=== PATIENT | male | born 1980 | race Caucasian/White ===

== ENCOUNTER 2021-04-30 07:09 | Emergency (ER) | payer SELFPAY ==
[~2021-04-30] VITALS: Ht 157.5 cm; Wt 70.0 kg
[2021-04-30] MEDS ORDERED: HYDR26CR2 TP (07:47)
[2021-04-30 08:01] VITALS: BP 138/65
== END 2021-04-30 08:00 | disposition home or self-care (01) ==
LOC: ER 07:09
DX: K64.4 Residual hemorrhoidal skin tags (principal); G89.29 Other chronic pain; F17.210 Nicotine dependence, cigarettes, uncomplicated
CPT/HCPCS: 99281

== ENCOUNTER 2022-05-07 07:32 | Emergency (ER) | payer MEDICAID ==
[~2022-05-07] VITALS: Ht 167.6 cm; Wt 69.0 kg
[~2022-05-07 07:32] MED LIST: HYDR26CR2 TP
[2022-05-07 07:44] VITALS: BP 147/92
[2022-05-07 16:46] LABS: BASOPHILS % 0.7 % (0.0-2.0); EOSINOPHILS % 1.5 % (0.0-5.0); HEMATOCRIT. 46.2 % (42.0-52.0); HEMOGLOBIN. 15.5 g/dL (14.0-18.0); LYMPHOCYTES % 31.5 % (20.0-50.0); MEAN CORPUSCULAR HEMOGLOBIN 28.3 pg (28.0-32.0); MEAN CORPUSCULAR VOLUME 84.4 fL (80.0-94.0); MONOCYTES % 9.4 % (2.0-8.0); NEUTROPHILS % 56.9 % (40.0-76.0); PLATELET 302 x1000/uL (130-400); RED BLOOD CELL COUNT 5.47 mill/uL (4.7-6.1)
[2022-05-07 16:53] LABS: CHLORIDE 105 mEq/L (98-107)
== END 2022-05-07 18:13 | disposition home or self-care (01) ==
LOC: ER 07:32
DX: K21.9 Gastro-esophageal reflux disease without esophagitis (principal); E78.00 Pure hypercholesterolemia, unspecified; Z98.890 Other specified postprocedural states
CPT/HCPCS: 36415; 80053; 84484; 85025; 93005; 99284

== ENCOUNTER 2022-06-28 01:14 | Emergency (ER) | payer MEDICAID ==
[~2022-06-28] VITALS: Ht 165.1 cm; Wt 73.0 kg
[2022-06-28 01:30] VITALS: BP 144/97
[2022-06-28] MEDS ORDERED: IBUP-2028 MT (02:53)
[2022-06-28] MEDS ORDERED: BENZ100C86 MT (02:53)
== END 2022-06-28 05:21 | disposition home or self-care (01) ==
LOC: ER 01:22
DX: J06.9 Acute upper respiratory infection, unspecified (principal); Z98.890 Other specified postprocedural states; Z20.822 Contact with and (suspected) exposure to COVID-19
CPT/HCPCS: 71045; 87426; 99284; C9803

== ENCOUNTER 2022-11-14 19:48 | Emergency (ER) | payer MEDICAID ==
[~2022-11-14] VITALS: Ht 165.1 cm; Wt 70.0 kg
[~2022-11-14 19:48] MED LIST changes: +BENZ100C86 MT; +IBUP-2028 MT
[2022-11-14 20:07] VITALS: O2SAT 98
[2022-11-14] MEDS ORDERED: FLUORESCEIN SODIUM 1MG/STRIP RIGHTEYE ONE (21:45)
[2022-11-14] MEDS ORDERED: IBUP-2029 MT (22:18)
[2022-11-14] MEDS ORDERED: ERYT1OIN6 RIGHTEYE (22:18)
[2022-11-14 22:33] VITALS: BP 131/89; PULSE 62; RESP 14; TEMP 98
== END 2022-11-14 23:03 | disposition home or self-care (01) ==
LOC: ER 19:48
DX: S00.11XA Contusion of right eyelid and periocular area, initial encounter (principal); X58.XXXA Exposure to other specified factors, initial encounter; Y93.89 Activity, other specified; Y92.89 Other specified places as the place of occurrence of the external cause; Y99.8 Other external cause status
CPT/HCPCS: 99283

== ENCOUNTER 2023-03-11 19:30 | Emergency (ER) | payer MEDICAID ==
[~2023-03-11] VITALS: Ht 175.3 cm; Wt 85.0 kg
[~2023-03-11 19:30] MED LIST changes: +ERYT1OIN6 RIGHTEYE; +IBUP-2029 MT
[2023-03-11 20:15] VITALS: BP 139/97; PULSE 75; RESP 16; TEMP 98.2; O2SAT 99
[2023-03-11] MEDS ORDERED: CARB-274 EACH EAR (20:41)
== END 2023-03-11 21:10 | disposition home or self-care (01) ==
LOC: ER 19:30
DX: K56.41 Fecal impaction (principal)
CPT/HCPCS: 99283

== ENCOUNTER 2023-07-19 12:48 | Emergency (ER) | payer MEDICAID ==
[~2023-07-19] VITALS: Ht 172.7 cm; Wt 90.0 kg
[~2023-07-19 12:48] MED LIST changes: +CARB-274 EACH EAR
[2023-07-19 13:01] VITALS: BP 114/70; PULSE 90; RESP 16; TEMP 98.4; O2SAT 100
[2023-07-19] MEDS: MAGNESIUM/ALUMINUM HYDROXIDE/SIMETHICONE 30ML UDC PO STA (13:25)
[2023-07-19] MEDS: FAMOTIDINE 20MG TABLET PO SCH (13:25)
[2023-07-19 13:58] LABS: BASOPHILS % 0.9 % (0.0-2.0); EOSINOPHILS % 3.7 % (0.0-5.0); HEMATOCRIT. 41.6 % (42.0-52.0); HEMOGLOBIN. 14.3 g/dL (14.0-18.0); LYMPHOCYTES % 27.8 % (20.0-50.0); MEAN CORPUSCULAR HGB CONC 34.4 g/dL (31.0-37.0); MEAN CORPUSCULAR VOLUME 84.4 fL (80.0-94.0); MEAN PLATELET VOLUME 8.2 fl (7.4-10.4); MONOCYTES % 11.7 % (2.0-8.0); NEUTROPHILS % 55.9 % (40.0-76.0); PLATELET 236 x1000/uL (130-400); RED BLOOD CELL COUNT 4.93 mill/uL (4.7-6.1); RED CELL DISTRIBUTION WIDTH 13.9 % (11.6-14.6); WHITE BLOOD COUNT 6.8 x1000/uL (4.5-11.0)
[2023-07-19 14:07] LABS: INR 0.9; PROTHROMBIN TIME 10.5 sec (9.6-11.0)
[2023-07-19 14:14] LABS: ALANINE AMINOTRANSFERASE 33 IU/L (10-49); ALBUMIN 4.6 g/dL (3.2-4.8); ASPARTATE AMINOTRANSFERASE 29 IU/L (<34); BILIRUBIN TOTAL 0.5 mg/dL (0.1-1.0); CALCIUM 8.9 mg/dL (8.7-10.4); CARBON DIOXIDE 26 mEq/L (21-32); CHLORIDE 107 mEq/L (98-107); CREATININE 0.9 mg/dL (0.6-1.3); GLUCOSE 115 mg/dL (70-105); POTASSIUM 4.1 mEq/L (3.5-5.1); PROTEIN TOTAL 7.1 g/dL (6.0-8.3); SODIUM 138 mEq/L (136-145); UREA NITROGEN BLOOD 11 mg/dL (9-23)
[2023-07-19 14:42] LABS: TROPONIN I HIGH SENSITIVITY < 4 ng/L (3.0-53)
[2023-07-19 16:51] LABS: TROPONIN I HIGH SENSITIVITY 4 ng/L (3.0-53)
[2023-07-19 18:44] LABS: TROPONIN I HIGH SENSITIVITY 4 ng/L (3.0-53)
== END 2023-07-19 23:03 | disposition home or self-care (01) ==
LOC: ER 12:48
DX: R07.89 Other chest pain (principal); F41.9 Anxiety disorder, unspecified; Z90.49 Acquired absence of other specified parts of digestive tract; Z79.899 Other long term (current) drug therapy
CPT/HCPCS: 36415; 71045; 80053; 84484; 85025; 93005; 99285

== ENCOUNTER 2023-10-13 09:46 | Emergency (ER) | payer MEDICAID, OTHER ==
[~2023-10-13] VITALS: Ht 167.6 cm; Wt 73.0 kg
[2023-10-13 09:49] VITALS: O2SAT 100
[2023-10-13 10:17] LABS: CHLORIDE 104 mEq/L (98-107); POTASSIUM 4.1 mEq/L (3.5-5.1); SODIUM 139 mEq/L (136-145)
[2023-10-13 10:18] LABS: CALCIUM 9.8 mg/dL (8.7-10.4); CARBON DIOXIDE 27 mEq/L (21-32)
[2023-10-13 10:23] LABS: GLUCOSE 97 mg/dL (70-105); UREA NITROGEN BLOOD 7 mg/dL (9-23)
[2023-10-13 10:25] LABS: ALANINE AMINOTRANSFERASE 37 IU/L (10-49); ALBUMIN 4.6 g/dL (3.2-4.8); ASPARTATE AMINOTRANSFERASE 25 IU/L (<34); BILIRUBIN DIRECT 0.2 mg/dL (<=3.0); BILIRUBIN TOTAL 0.7 mg/dL (0.1-1.0); PROTEIN TOTAL 7.6 g/dL (6.0-8.3)
[2023-10-13 10:28] LABS: BASOPHILS % 0.9 % (0.0-2.0); EOSINOPHILS % 1.4 % (0.0-5.0); HEMATOCRIT. 43.7 % (42.0-52.0); HEMOGLOBIN. 14.7 g/dL (14.0-18.0); LYMPHOCYTES % 28.4 % (20.0-50.0); MEAN CORPUSCULAR HEMOGLOBIN 28.8 pg (28.0-32.0); MEAN CORPUSCULAR HGB CONC 33.6 g/dL (31.0-37.0); MEAN CORPUSCULAR VOLUME 85.7 fL (80.0-94.0); MEAN PLATELET VOLUME 8.1 fl (7.4-10.4); MONOCYTES % 6.3 % (2.0-8.0); PLATELET 284 x1000/uL (130-400); RED CELL DISTRIBUTION WIDTH 13.7 % (11.6-14.6); WHITE BLOOD COUNT 6.1 x1000/uL (4.5-11.0)
[2023-10-13] MEDS ORDERED: MAGNESIUM/ALUMINUM HYDROXIDE/SIMETHICONE 30ML UDC PO STA (12:23)
[2023-10-13] MEDS ORDERED: FAMOTIDINE 20MG TABLET PO ONE (12:30)
[2023-10-13 14:27] VITALS: BP 118/80; PULSE 61; RESP 16; TEMP 98
[2023-10-13] MEDS ORDERED: MAG-55 MT (14:27)
[2023-10-13] MEDS ORDERED: OMEP20CA14 MT (14:27)
[2023-10-13] MEDS: VISCOUS LIDOCAINE 2% 15 ML UDC PO NR (14:30)
[2023-10-13] MEDS: MAGNESIUM/ALUMINUM HYDROXIDE/SIMETHICONE 30ML UDC PO NR (14:31)
[2023-10-13] MEDS: FAMOTIDINE 20MG TABLET PO NR (14:31)
[2023-10-13 14:42] LABS: CLARITY URINE CLEAR (CLEAR); COLOR URINE YELLOW (YELLOW); GLUCOSE URINE NEGATIVE (NEGATIVE); KETONES URINE NEGATIVE (NEGATIVE); LEUKOCYTE ESTERASE URINE NEGATIVE (NEGATIVE); NITRITE URINE NEGATIVE (NEGATIVE); OCCULT BLOOD URINE NEGATIVE (NEGATIVE); PROTEIN URINE NEGATIVE (NEGATIVE); SPECIFIC GRAVITY URINE 1.016 (1.005-1.030); UROBILINOGEN URINE 0.2 E.U./dL (0.2-1.0)
== END 2023-10-13 14:51 | disposition home or self-care (01) ==
LOC: ER 09:46
DX: K21.9 Gastro-esophageal reflux disease without esophagitis (principal); F41.9 Anxiety disorder, unspecified; Z79.899 Other long term (current) drug therapy
CPT/HCPCS: 80076; 80048; 81003; 85025; 36415; 93005; 99284; Z7610

== ENCOUNTER 2024-02-16 10:30 | Emergency (ER) | payer MEDICAID, OTHER ==
[~2024-02-16] VITALS: Ht 170.2 cm; Wt 66.0 kg
[~2024-02-16 10:30] MED LIST changes: +MAG-55 MT; +OMEP20CA14 MT
[2024-02-16 10:37] VITALS: O2SAT 99
[2024-02-16 10:55] VITALS: BP 112/80; PULSE 72; RESP 18; TEMP 98.1; O2SAT 98
[2024-02-16 11:42] LABS: CHLORIDE 104 mEq/L (98-107); SODIUM 139 mEq/L (136-145)
[2024-02-16 11:43] LABS: CALCIUM 10.1 mg/dL (8.7-10.4); CARBON DIOXIDE 27 mEq/L (21-32)
[2024-02-16 11:48] LABS: GLUCOSE 93 mg/dL (70-105); UREA NITROGEN BLOOD 8 mg/dL (9-23)
[2024-02-16 11:50] LABS: TROPONIN I HIGH SENSITIVITY < 4 ng/L (3.0-53)
[2024-02-16 11:51] LABS: BASOPHILS % 0.8 % (0.0-2.0); EOSINOPHILS % 3.2 % (0.0-5.0); HEMATOCRIT. 44.2 % (42.0-52.0); HEMOGLOBIN. 15.1 g/dL (14.0-18.0); MEAN CORPUSCULAR HEMOGLOBIN 29.2 pg (28.0-32.0); MEAN CORPUSCULAR HGB CONC 34.3 g/dL (31.0-37.0); MEAN CORPUSCULAR VOLUME 85.2 fL (80.0-94.0); MEAN PLATELET VOLUME 8.2 fl (7.4-10.4); PLATELET 269 x1000/uL (130-400); RED BLOOD CELL COUNT 5.18 mill/uL (4.7-6.1); RED CELL DISTRIBUTION WIDTH 13.9 % (11.6-14.6); WHITE BLOOD COUNT 6.3 x1000/uL (4.5-11.0)
[2024-02-16 12:09] LABS: CLARITY URINE CLEAR (CLEAR); COLOR URINE YELLOW (YELLOW); GLUCOSE URINE NEGATIVE (NEGATIVE); KETONES URINE NEGATIVE (NEGATIVE); LEUKOCYTE ESTERASE URINE NEGATIVE (NEGATIVE); NITRITE URINE NEGATIVE (NEGATIVE); OCCULT BLOOD URINE NEGATIVE (NEGATIVE); PH URINE 6.5 (4.5-8.0); PROTEIN URINE NEGATIVE (NEGATIVE); UROBILINOGEN URINE 0.2 E.U./dL (0.2-1.0)
[2024-02-16] MEDS ORDERED: MECL-217 MT (12:34)
== END 2024-02-16 13:18 | disposition home or self-care (01) ==
LOC: ER 10:30
DX: R42 Dizziness and giddiness (principal); F41.9 Anxiety disorder, unspecified; Z98.890 Other specified postprocedural states
CPT/HCPCS: 36415; 80048; 81003; 84484; 85025; 93005; 99284

== ENCOUNTER 2024-04-08 06:54 | Emergency (ER) | payer MEDICAID, OTHER ==
[~2024-04-08] VITALS: Ht 170.2 cm; Wt 69.5 kg
[~2024-04-08 06:54] MED LIST changes: +MECL-217 MT
[2024-04-08 07:01] VITALS: BP 110/77; TEMP 98.4; O2SAT 99
[2024-04-08 07:05] VITALS: PULSE 80; RESP 16; O2SAT 100
[2024-04-08] MEDS ORDERED: CYCL10TA21 MT (07:52)
[2024-04-08] MEDS ORDERED: CELE100C MT (07:52)
== END 2024-04-08 08:27 | disposition home or self-care (01) ==
LOC: ER 06:54
DX: S16.1XXA Strain of muscle, fascia and tendon at neck level, initial encounter (principal); S29.012A Strain of muscle and tendon of back wall of thorax, initial encounter; F41.9 Anxiety disorder, unspecified; Z79.899 Other long term (current) drug therapy; W18.30XA Fall on same level, unspecified, initial encounter; Y93.89 Activity, other specified; Y92.89 Other specified places as the place of occurrence of the external cause; Y99.8 Other external cause status
CPT/HCPCS: 99283